=== PATIENT | male | born 2000 | race African-American/Black ===

== ENCOUNTER 2024-09-30 19:43 | Emergency (ER) | payer OTHER ==
[~2024-09-30] VITALS: Ht 172.7 cm; Wt 68.2 kg
[2024-09-30 20:23] VITALS: TEMP 97.8
[2024-09-30 20:48] VITALS: BP 107/65; PULSE 64; RESP 16; O2SAT 99
== END 2024-09-30 23:47 ==
LOC: EMS 20:01
DX: S50.01XA Contusion of right elbow, initial encounter (principal); Y04.0XXA Assault by unarmed brawl or fight, initial encounter; Y93.89 Activity, other specified; Y92.89 Other specified places as the place of occurrence of the external cause; Y99.8 Other external cause status
CPT/HCPCS: 99283